=== PATIENT | male | born 1995 | race Caucasian/White ===

== ENCOUNTER 2021-11-12 15:42 | Emergency (ER) | payer SELFPAY ==
[2021-11-12 15:58] VITALS: BP 126/78; PULSE 80; RESP 18; TEMP 36.8; O2SAT 100; BMI 21.2
--- NOTE | 2021-11-12 16:39 | ED_ITS ---
HPI - Abdominal Pain General Chief Complaint: Unspecified Complaint, Adult Stated Complaint: FOOD CAUGHT IN THROAT Time Seen by Provider: 11/12/21 16:22 Source: patient and RN notes reviewed History of Present Illness HPI narrative: 26-year-old young man presenting to the emergency department with his friend after swallowing some chicken strips and noting them getting stuck. He has been unable to swallow water noted that it just burbles up; he got scared Please see nursing notes/triage notes. I went to assess Mr. Stark and he tells me that since he spoke with the nurse that it seems to have moved and he is feeling better; feels he might not need to be formally assessed by MD. would like to try some water. I offered to get him some. He manages to swallow the water and it stays down. Overall improved. Mentioned potential globus sensation as res idual. Related Data Home Medications Medication Instructions Recorded Confirmed No Known Home Medications 11/12/21 11/12/21 Allergies Allergy/AdvReac Type Severity Reaction Status Date / Time amoxicillin Allergy Intermediate Uncoded 11/12/21 16:02 [facility] Medical History (Updated 11/13/21 @ 20:38 by Alfredo Alston MD) No significant past medical history Surgical History (Updated 11/12/21 @ 16:18 by Nelida Ordonez RN) History of hernia repair Social History Smoking Status: Never smoker How often do you have a drink containing alcohol: 2-4 times a month AUDIT-C Alcohol total score: 2 Non-prescribed substance use: denies use Exam Narrative: Exam Narrative: No exam beyond observation initial conversation. Const: Vital Signs, click to edit/add: Vital Signs - 24 hr 11/12/21 15:58 Temperature 98.3 F Pulse Rate [Pulse Oximeter] 80 Respiratory Rate 18 Blood Pressure [Ri ght Upper Arm] 126/78 Pulse Oximetry 100 Course Course Hospital Course: As above Vital Signs Vital signs: Initial Vital Signs Temperature 98.3 F 11/12/21 15:58 Temperature Source Temporal Artery Scan 11/12/21 15:58 Pulse Rate 80 11/12/21 15:58 Respiratory Rate 18 11/12/21 15:58 Blood Pressure 126/78 11/12/21 15:58 Blood Pressure Mean 94 11/12/21 15:58 Pulse Oximetry 100 11/12/21 15:58 Oxygen Delivery Method 11/12/21 15:58 Vital Signs Temperature 98.3 F 11/12/21 15:58 Pulse Rate 80 11/12/21 15:58 Respiratory Rate 18 11/12/21 15:58 Blood Pressure 126/78 11/12/21 15:58 Pulse Oximetry 100 11/12/21 15:58 Temperature 98.3 F 11/12/21 15:58 Pulse Rate 80 11/12/21 15:58 Respiratory Rate 18 11/12/21 15:58 Blood Pressure 126/78 11/12/21 15:58 Pulse Oximetry 100 11/12/21 15:58 Discharge Plan Discharge Clinical Impression: Obstruction of esophagus due to food impaction Prescriptions: No Action No Known Home Medications 0RF
--- NOTE | 2021-11-12 16:44 | ED.NURSE ---
when dr. grimm went in to see pt, pt felt that food moved and was able to swallow. pt given water and drinking without difficulty. pt no longer wants to be seen and refusal of service signed.
== END 2021-11-12 16:53 | disposition home or self-care (01) ==
LOC: ED 16:51
PROVIDERS: Emergency Provider Family Medicine
DX: T18.128A Food in esophagus causing other injury, initial encounter (principal)
CPT/HCPCS: 99281